=== PATIENT | female | born 1970 | race Caucasian/White ===

== ENCOUNTER 2018-08-31 19:26 | Observation (INO) ==
[2018-08-31] MEDS ORDERED: NS 1,000 ML IV ONE ×2 (19:38→23:25)
--- NOTE | 2018-08-31 20:11 | Diag Imaging Result Doc PS360 ---
EXAM: CHEST-PORTABLE - 08/31/2018 HISTORY: weak TECHNIQUE: Portable chest COMPARISON: 04/04/2018 FINDINGS: Heart size is normal. The lungs appear clear. There is no pleural effusion or pneumothorax identified. IMPRESSION: No evidence of acute disease. Electronically signed by Doug Gil 08/31/2018 8:08 PM
[2018-08-31] MEDS ORDERED: SOLU-MEDROL IV ONE (20:16)
[2018-08-31 20:28] LABS: BASO# 0.03 X1000 (0.0-0.2); BASO% 0.5 % (0.0-0.8); EOS# 0.31 X1000 (0.0-0.7); EOS% 4.8 % (0.0-10.0); HEMATOCRIT 40.7 % (37.0-47.0); HEMOGLOBIN 13.2 g/dL (12.0-16.0); IMM GRAN# 0.01 X1000 (0.0-0.04); IMM GRAN% 0.2 % (0.0-0.5); LYMPH# 1.13 X1000 (1.2-3.4); LYMPH% 17.4 % (20.5-51.1); MCH 28.2 PG (27-31); MCHC 32.4 g/dL (33-37); MONO# 0.64 X1000 (0.11-0.59); MONO% 9.8 % (1.7-9.3); MPV 10.4 FL (7.4-10.4); NEUT# 4.38 X1000 (1.4-6.5); NEUT% 67.3 % (42.2-75.2); PLT 230 X1000 (130-400); RBC 4.68 XMIL (4.2-5.4); RDW 15.6 % (11.5-14.5)
[2018-08-31 20:50] LABS: AGAP 9; ALBUMIN 3.7 g/dL (3.5-5.0); ALKALINE PHOSPHATASE 76 U/L (32-104); BUN 14 mg/dL (8-22); CALCIUM 8.8 mg/dL (8.8-10.2); CHLORIDE 106 mmol/L (98-107); COSMO 281; CREATININE 0.7 mg/dL (0.5-0.9); ESTIMATED GFR > 60; GLUCOSE 91 mg/dL (70-104); GOT 15 U/L (10-30); GPT 12 U/L (10-36); POTASSIUM 4.2 mmol/L (3.5-5.1); SODIUM 141 mmol/L (136-145); TCO2 26 mmol/L (25-35); TOTAL PROTEIN 7.3 g/dL (6.3-8.3)
[2018-08-31] MEDS ORDERED: NS 200 ML ONE (20:52)
[2018-08-31] MEDS ORDERED: CARDIZEM IV ONE (21:00)
[2018-08-31] MEDS ORDERED: NITROGLYCERIN SL ONE (21:00)
[2018-08-31 21:26] LABS: BILIRUBIN URINE NEGATIVE (NEGATIVE); BLOOD URINE 4+ (NEGATIVE); CLARITY SL. CLOUDY (CLEAR); COLOR YELLOW; GLUCOSE URINE NEGATIVE (NEGATIVE); KETONE URINE NEGATIVE (NEGATIVE); LEUKOCYTES URINE 2+ (NEGATIVE); NITRITE URINE NEGATIVE (NEGATIVE); PROTEIN URINE NEGATIVE (NEGATIVE); URINE SOURCE CATH; UROBILINOGEN URINE NORMAL
[2018-08-31 21:27] LABS: URINE BACTERIA NEGATIVE /HFP; URINE EPITHELIAL CELLS <10 /HPF (<10); URINE RBC <10 /HPF (<10)
[2018-08-31 21:28] LABS: URINE CAST NONE SEEN /LPF; URINE CRYSTAL NONE SEEN /HPF; URINE YEAST NONE SEEN /HPF
[2018-08-31] MEDS ORDERED: LEVAQUIN 750 MG/D5W 750 MG/150 ML IVPB IV ONE (22:12)
--- NOTE | 2018-08-31 23:01 | PROVIDER DOCUMENTATION ---
This chart was entered by Sydni Garcia Scribe, acting as scribe for Fabrice Seaman MD. HPI-General Adult - General Chief Complaint: Nausea/Vomiting Stated Complaint: dizzy, nausea,weakness Time Seen by Provider: 08/31/18 19:36 Source: patient Allergies/Adverse Reactions: Patient Allergies Allergy/AdvReac Type Severity Reaction Status Date / Time Penicillins Allergy RASH Verified 04/05/18 00:01 sulfamethoxazole Allergy RASH Verified 04/04/18 20:44 [From Bactrim] trimethoprim [From Bactrim] Allergy RASH Verified 04/04/18 20:44 Home Medications: Home Medication List Medication Instructions Recorded Confirmed Last Taken Type Cholecalciferol (Vitamin D3) 1 tab PO DAILY 06/25/15 08/31/18 04/03/18 History [Vitamin D3] Hydrocodone/Ibuprofen [Vicoprofen 1 tab PO BID PRN 06/25/15 08/31/18 04/03/18 History 200-7.5 mg Tab] Alprazolam [Xanax] 1 tab PO BID PRN 04/07/16 08/31/18 04/03/18 History Ondansetron HCl [Zofran] 1 tab PO Q8H PRN PRN 04/07/16 08/31/18 04/07/16 History Baclofen 20 mg PO 4XDAY 05/09/17 08/31/18 04/03/18 History Amphet Asp/Amphet/D-Amphet 1 tab PO BID 04/04/18 08/31/18 04/03/18 History [Adderall 10 mg Tablet] Citalopram [Celexa] 1 tab PO QAM 04/04/18 08/31/18 04/03/18 History Meclizine HCl [Antivert] 1 tab PO Q8HR PRN 04/04/18 08/31/18 Unknown History Tolterodine Tartrate [Detrol LA] 1 cap PO DAILY 08/31/18 08/31/18 Unknown History Venlafaxine [Effexor] 1 tab PO DAILY 08/31/18 08/31/18 Unknown History - History of Present Illness -Gen Adult Nature of Presenting Problems: pt is a 48 yr old female presenting via EMS with complaint of nausea, vomiting, weakness and incontinence. pt hx of MS, reports n/v over last 3 days, increasing weakness and now unable to transfer self, pt is non ambulatory at baseline, reports since unable to transfers self she has become incontinent. pt admits dysuria, urgency but when she attempts to urinate she is unable to. pt reports hx of UTIs, last MS flair was in April. 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 Severity: reports: moderate Onset/Duration: reports: 3 days ago Timing: reports: still present, getting worse Context/Activities at Onset: reports: rest Modifying Factors: improves with: nothing Associated Symptoms: reports: fatigue, genitourinary problems, nausea, vomiting, weakness. denies: fever/chills, shortness of breath Similar Symptoms Previously?: Yes (hx of MS, UTIs) Recently seen or treated by another doctor?: No Review of Systems - Adult - REVIEW OF SYSTEMS - ADULT Constitutional: reports: fatique. denies: fever Eyes: reports: no symptoms reported Ears, Nose, Mouth & Throat: reports: no symptoms reported Cardiovascular: denies: chest pain, palpitations, syncope Respiratory: denies: cough, shortness of breath Gastrointestinal: reports: nausea, vomiting. denies: abdominal pain, constip ation, diarrhea Genitourinary: reports: dysuria, incontinence, urgency Musculoskeletal: reports: muscle weakness (unable to transfer due to weakness) Integumentary: reports: no symptoms reported Neurological: denies: dizziness/vertigo, headache/migraines, syncope Psychiatric: reports: no symptoms reported Endocrine: reports: no symptoms reported Hematologic/Lymphatic: reports: no symptoms reported Allergic/Immunologic: reports: no symptoms reported All Other Systems: Reviewed and Negative Past History - Adult - PAST MEDICAL HISTORY-ADULT Review of Records: reports: Old Records Reviewed, Nursing Assessment Review, Medications Reviewed, Social history reviewed & non-contributory. Major Childhood Illnesses: reports: denies history Cardiovascular: reports: denies history Respiratory: reports: denies history Gastrointestinal: reports: denies history Obstetrical/Gynecological: reports: denies history Genitourinary: reports: denies history Musculoskeletal: reports: denies history Neurological: reports: Muscular Dystrophy, Multiple Sclerosis Psychiatric: reports: denies history Endocrine/Immune: reports: denies history Other Conditions: reports: denies history - IMMUNIZATION STATUS Childhood Immunizations: See Nurse Assessment Flu Vaccine: See Nurse Assessment - FAMILY HISTORY Family History: reviewed, not pertinent - SOCIAL HISTORY Smoking: non-smoker Substance Use: denies Living Situation: family Physical Exam-General - PHYSICAL EXAM-ADULT Initial Vital Signs Reviewed: Yes - CONSTITUTIONAL General Appearance: alert, no apparent distress - EYES Eyes: PERRL/EOMI - HEAD, EARS, NOSE, MOUTH & THROAT HENMT: normocephalic/atraumatic, moist mucous membranes, normal ENT inspection - NECK Neck: non-tender, full range of motion, supple, normal inspection - RESPIRATORY Respiratory: chest non-tender, lungs clear, normal breath sounds, no pleuratic chest pain, no respiratory distress, no accessory muscle use - CARDIOVASCULAR Cardiovascular: normal peripheral pulses, no edema, tachycardia - GASTROINTESTINAL (ABDOMEN) Abdominal Exam: normal bowel sounds, non tender, soft - LYMPHATIC Lymphatic: no adenopathy - MUSCULOSKELETAL Back Exam: normal inspection, no CVA tenderness, no vertebral tenderness Extremity: normal range of motion, non-tender, normal inspection - SKIN Integumentary: normal color, normal turgor, warm/dry - PSYCHIATRIC Psych/Mental Status: normal mood/affect Progress - PLAN OF CARE/RESULTS Progress/Plan/Lab Results: Vital Signs - 8 hr 08/31/18 19:26 08/31/18 19:37 Temperature 98 F Pulse Rate 115 H Respiratory Rate 20 Blood Pressure 163/119 141/97 O2 Sat by Pulse Oximetry 98 Orders Category Date Time Status Nursing- Obtain EKG ONCE Care 08/31/18 19:37 Active CHEST-PORTABLE [RAD] Stat Exams 08/31/18 19:37 Completed BLOOD CULTURE [BLDCUL] Stat Lab 08/31/18 19:37 Uncollected CBC WITH DIFF [HEME] Stat Lab 08/31/18 19:37 Uncollected CMP [COMPREHENSIVE METABOLIC PANEL] [CHEM] Stat Lab 08/31/18 19:37 Uncollected LACTATE, PLASMA [CHEM] Stat Lab 08/31/18 19:[address] W/POSS RFLX CULT [URINALYSIS] Stat Lab 08/31/18 19:37 Uncollected 0.9% Sodium Chloride Inj [Ns] 1,000 ml Med 08/31/18 19:38 Active IV 999 mls/hr EKG [EKG] Stat Ther 08/31/18 19:37 Ordered Result Diagrams: 08/31/18 20:15 08/31/18 20:15 - EKG 1 Time of EKG reading by physician:: 20:08 EKG Read and Signed by:: Fabrice Seaman EKG Interpretation (*Must complete 3 of following elements*): Abnormal (poss LAE, septal infarct-age undetermined) Rate: 104 Rhythm: sinus tachycardia [place]: normal QRS: normal [place] Interval: normal ST Wave: normal - XRAY 1 XRAY Study: Chest Impression: Normal ( Signed EXAM: CHEST-PORTABLE - 08/31/2018 HISTORY: weak TECHNIQUE: Portable chest COMPARISON: 04/04/2018 FINDINGS: Heart size is normal. The lungs appear clear. There is no pleural effusion or pneumothorax identified. IMPRESSION: No evidence of acute disease. Electronically signed by Doug Gil 08/31/2018 8:08 PM 08/31/182007 Interpreting Physician: Doug Gil MD Dictated Date/Time: 08/31/182006 cc: Fabrice Seaman MD; UNKNOWN) Comparison with other Films: no changes (04/04/18) - CONSULTS/PCP/HOSPITALIST Notification #1 *Consult/PCP/Hospitalist*: Shon Time Discussed: 22:59 Consult Disposition: Admit Departure - Departure Date of Disposition Decision: 08/31/18 Time of Disposition Decision: 22:59 DIAGNOSIS: UTI (urinary tract infection), Multiple sclerosis exacerbation Disposition: ADMITTED INPATIENT 09 Certified Medical Emergency: Emergent Condition: Good Referrals and Follow-Ups: UNKNOWN, [Primary Care Provider] - - Critical Care Note This patient required my direct & personal management of CC.: No Attestation - Physician/ JOSÉ LUIS Attestation Patient care was provided by Advanced Practice Provider:: No The physician spent face to face time with patient:: Yes Advanced Practice Provider documentation review:: Supervising physician onsite and consulted in the evaluation and care of this patient. The physician did have a face to face encounter with the patient. This chart was documented by the indicated scribe, (Sydni Garcia Scribe) and accurately reflects the services I performed and decisions made by me, Fabrice Seaman MD, as attested by the provider's signature.
[2018-08-31] MEDS ORDERED: ZOFRAN IV PRN (23:25)
--- NOTE | 2018-09-01 04:25 | EKG Report ---
Test Performed on : 08/31/2018 8:04:11 PM Test Reason : CP Blood Pressure : / mmHG Vent. Rate : 104 BPM Atrial Rate : 104 BPM P-R Int : 136 ms QRS Dur : 072 ms QT Int : 340 ms P-R-T Axes : 072 009 056 degrees QTc Int : 447 ms Sinus tachycardia. Possible Left atrial enlargement Septal infarct , age undetermined Abnormal ECG When compared with ECG of 04-APR-2018 19:50, Vent. rate has increased BY 35 BPM Unconfirmed Result
[2018-09-01 08:25] LABS: BASO# 0.01 X1000 (0.0-0.2); BASO% 0.1 % (0.0-0.8); HEMATOCRIT 40.3 % (37.0-47.0); IMM GRAN# 0.03 X1000 (0.0-0.04); IMM GRAN% 0.4 % (0.0-0.5); LYMPH# 0.78 X1000 (1.2-3.4); LYMPH% 10.9 % (20.5-51.1); MCHC 32.3 g/dL (33-37); MCV 86.9 FL (81-99); MONO# 0.04 X1000 (0.11-0.59); MONO% 0.6 % (1.7-9.3); MPV 10.5 FL (7.4-10.4); NEUT# 6.29 X1000 (1.4-6.5); PLT 229 X1000 (130-400); RBC 4.64 XMIL (4.2-5.4); RDW 15.2 % (11.5-14.5); WBC 7.15 X1000 (4.8-10.8)
[2018-09-01 09:01] LABS: AGAP 12; BUN 16 mg/dL (8-22); CALCIUM 8.8 mg/dL (8.8-10.2); CHLORIDE 106 mmol/L (98-107); COSMO 286; CREATININE 0.6 mg/dL (0.5-0.9); ESTIMATED GFR > 60; GLUCOSE 170 mg/dL (70-104); POTASSIUM 4.4 mmol/L (3.5-5.1); SODIUM 141 mmol/L (136-145); TCO2 23 mmol/L (25-35)
[2018-09-01] MEDS ORDERED: XANAX PO PRN (09:11)
[2018-09-01] MEDS ORDERED: VICOPROFEN 200/7.5 MG PO PRN (09:11)
[2018-09-01] MEDS ORDERED: ANTIVERT PO PRN (09:11)
[2018-09-01] MEDS ORDERED: ZOFRAN ODT PO PRN (09:11)
[2018-09-01] MEDS ORDERED: DETROL LA PO SCH (09:15)
[2018-09-01] MEDS ORDERED: EFFEXOR PO SCH (09:15)
[2018-09-01] MEDS ORDERED: CELEXA PO SCH (09:15)
[2018-09-01 09:58] LABS: LYMPHS 14 % (21-51); SEGS 86 % (42-75)
--- NOTE | 2018-09-01 10:00 | HISTORY AND PHYSICAL ---
PRIMARY CARE PHYSICIAN: ERIC Thao NEUROLOGIST: Dr. Loc Gilliam MD CHIEF COMPLAINT: Nausea and vomiting x3 and increased weakness with some dysuria and urgency, and urinary incontinence. HISTORY OF PRESENTING ILLNESS: This is a 48-year-old female with a history of MS, who presents to [facility] ER with complaints of nausea, vomiting, and weakness over the last 3 days along with some dysuria, urgency and incontinence. She notes her last MS exacerbation was in April of 2018. Her workup was really fairly unremarkable. She did have a bump in her blood pressure at 163/119 on arrival, but currently it is 149/87. Her laboratory data showed a white blood cell count of 6.50. All of her electrolytes were within normal limits. Her urinalysis showed negative nitrites, 2+ white blood cells, but no bacteria, and no yeast so she was admitted for further evaluation and treatment. PAST MEDICAL HISTORY: MS, ADHD, and depression. PAST SURGICAL HISTORY: . FAMILY HISTORY: Reviewed and noncontributory. SOCIAL HISTORY: She currently lives with family. Denies any tobacco, alcohol or illicit drug use. ALLERGIES: To penicillin and sulfa drugs. HOME MEDICATIONS: She takes Xanax 1 0.25 mg p.o. b.i.d. p.r.n., baclofen 20 mg p.o. 4 times daily, Celexa 40 mg p.o. every morning. Adderall 10 mg p.o. b.i.d. will be held. Matthews 7.5 one p.o. t.i.d. p.r.n., Antivert 25 mg p.o. q.8 hours p.r.n., Zofran 8 mg p.o. q.8 hours p.r.n., Detrol LA 4 mg 1 p.o. daily, and Effexor 75 mg p.o. daily. LABORATORY DATA: White blood cell count of 6.50, hemoglobin 13.2, hematocrit 40.7, and platelets 230,000. Sodium 141, potassium 4.2, chloride 106, CO2 26, BUN of 14, creatinine 0.7, glucose 91, and plasma lactate 1. Urinalysis was negative except for 2+ white blood cells. Chest x-ray showed no evidence of acute disease. EKG showed sinus tachycardia at 104. REVIEW OF SYSTEMS: She denied any fever, chills, blurred vision, or dizziness. She has had increased weakness. Denied any chest pain, coughing, or shortness of breath. She was positive for some nausea, vomiting, dysuria, urgency and some stress incontinence. Denied any abdominal pain, constipation, or diarrhea. PHYSICAL EXAMINATION: VITAL SIGNS: On arrival, she had a temperature of 98 degrees, pulse 115, respirations 20, blood pressure was 163/119, and saturating 98% on room air. Currently, blood pressure is 149/87. GENERAL: This is a 48-year-old female who is lying in the bed and answers questions appropriately. States she has not been able to walk for the past 2 years, but is able to transfer herself from bed to wheelchair. HEENT: Normocephalic, atraumatic. Normal ENT inspection. Oropharynx and nares are clear. Pupils are equal, round, reactive to light and accommodation. Extraocular movements are intact. NECK: Normal on inspection. Normal range of motion. LUNGS: Clear to auscultation bilaterally with equal lung expansion and chest wall movement. HEART: Regular rate and rhythm. No murmurs, rubs, or gallops. ABDOMEN: Soft, nontender, and nondistended. Bowel sounds are present x4 quadrants. MUSCULOSKELETAL: She has 3/5 strength x4 extremities. NEUROLOGICAL: The cranial nerves 2-12 appear grossly intact otherwise. ASSESSMENT: 1. Generalized weakness secondary to MS. 2. Nausea and vomiting. 3. Dysuria with some stress incontinence. PLAN: She was admitted to the medical unit. She was placed on a regular diet and had tolerated her diet well this morning with no further complaints of nausea or vomiting. Her urine culture is pending. We were considering doing an MRI of her brain, but she states that she has to be completely sedated in an outpatient setting in order to do an MRI, and her last one was approximately 6 months ago. She did receive 1000 mg of Solu-Medrol IV x1 in the emergency room. She has normal saline at 125 mL an hour that is completed. She received Levaquin 750 mg IV x1 in the emergency room, but according to the urinalysis we have, it is negative. Again, her urine culture is pending. She can possibly be discharged after being seen by attending later this afternoon so further orders after being seen by attending. Dictated by ERIC Vazquez for Brandon Limon MD Addendum: Patient seen and examined by myself. Agree with ERIC note. It reflects my assessment and plan. Patient is being admitted to hospital for possible MS exacerbation. Patient also reported history of recurrent UTI so will start antibiotics now. Will monitor patient closely. cc: ERIC Vazquez MD Kevin D. Campbell, CRNP Christopher C. Laganke, MD [facility]ITALMarsha
[2018-09-01] MEDS ORDERED: LIORESAL PO SCH (13:00)
[2018-09-01 13:31] VITALS: BP 129/79
== END 2018-09-01 16:10 | disposition home or self-care (01) ==
LOC: P.ED 19:26 → INTOOBSV 23:17 → P.MEDSURG 23:17
PROVIDERS: ATTEND Internal Medicine
CPT/HCPCS: 51702; 71010; 71045; 80048; 80053; 81001; 83605; 85025; 87040; 87077; 87088; 87186; 93005; 96365; 96367; 96375; 99285; A9270; G0378; J1956; J2930; J7030

== ENCOUNTER 2019-03-07 16:08 | Inpatient (IN) ==
--- NOTE | 2019-03-07 16:33 | Diag Imaging Result Doc PS360 ---
EXAM: CHEST-1 VIEW 03/07/2019 HISTORY: cough TECHNIQUE: Erect AP portable at 1641 COMMENT: There is ill-defined opacity present in the right lower lobe which was not the case on 08/31/2018. There is a hiatal hernia. IMPRESSION: Bronchopneumonia right lower lobe. Electronically signed by Bret Velazquez 03/07/2019 4:31 PM
[2019-03-07] MEDS ORDERED: LEVAQUIN 500 MG/D5W 500 MG/100 ML IVPB IV ONE (16:38)
[2019-03-07 16:51] LABS: BASO# 0.02 X1000 (0.0-0.2); BASO% 0.3 % (0.0-0.8); EOS# 0.36 X1000 (0.0-0.7); EOS% 5.9 % (0.0-10.0); HEMATOCRIT 39.6 % (37.0-47.0); HEMOGLOBIN 12.3 g/dL (12.0-16.0); IMM GRAN# 0.01 X1000 (0.0-0.04); IMM GRAN% 0.2 % (0.0-0.5); LYMPH# 0.56 X1000 (1.2-3.4); LYMPH% 9.2 % (20.5-51.1); MCH 27.3 PG (27-31); MCHC 31.1 g/dL (33-37); MONO% 11.5 % (1.7-9.3); MPV 10.9 FL (7.4-10.4); NEUT# 4.46 X1000 (1.4-6.5); NEUT% 72.9 % (42.2-75.2); PLT 169 X1000 (130-400); RDW 13.8 % (11.5-14.5); WBC 6.11 X1000 (4.8-10.8)
[2019-03-07 17:16] LABS: AGAP 9; ALBUMIN 3.6 g/dL (3.5-5.0); ALKALINE PHOSPHATASE 82 U/L (32-104); BUN 13 mg/dL (8-22); CALCIUM 9.2 mg/dL (8.8-10.2); CHLORIDE 105 mmol/L (98-107); COSMO 277; CREATININE 0.6 mg/dL (0.5-0.9); ESTIMATED GFR > 60; GLUCOSE 89 mg/dL (70-104); GOT 15 U/L (10-30); GPT 13 U/L (10-36); POTASSIUM 4.1 mmol/L (3.5-5.1); SODIUM 139 mmol/L (136-145); TCO2 25 mmol/L (25-35); TOTAL PROTEIN 6.9 g/dL (6.3-8.3)
--- NOTE | 2019-03-07 17:20 | PROVIDER DOCUMENTATION ---
This chart was entered by Pauline Kim Scribe, acting as scribe for Demarco Shrestha MD. HPI-General Adult - General Chief Complaint: Weakness Stated Complaint: WEAKNESS/ COUGH Time Seen by Provider: 03/07/19 16:15 Source: patient, family () Allergies/Adverse Reactions: Patient Allergies Allergy/AdvReac Type Severity Reaction Status Date / Time Penicillins Allergy RASH Verified 04/05/18 00:01 sulfamethoxazole Allergy RASH Verified 04/04/18 20:44 [From Bactrim] trimethoprim [From Bactrim] Allergy RASH Verified 04/04/18 20:44 Home Medications: Home Medication List Medication Instructions Recorded Confirmed Last Taken Type Alprazolam [Xanax] 1 tab PO BID PRN 04/07/16 08/31/18 04/03/18 History Ondansetron HCl [Zofran] 1 tab PO Q8H PRN PRN 04/07/16 08/31/18 04/07/16 History Baclofen 20 mg PO 4XDAY 05/09/17 09/01/18 04/03/18 History Citalopram [Celexa] 1 tab PO QAM 04/04/18 09/01/18 04/03/18 History Meclizine HCl [Antivert] 1 tab PO Q8HR PRN 04/04/18 08/31/18 Unknown History Tolterodine Tartrate [Detrol LA] 1 cap PO DAILY 08/31/18 08/31/18 Unknown History Venlafaxine [Effexor] 1 tab PO DAILY 08/31/18 08/31/18 Unknown History CefDINIR [Omnicef] 300 mg PO BID #20 cap 09/01/18 Unknown Rx Dextroamphetamine/Amphetamine 10 mg PO BID 09/01/18 09/01/18 Unknown History [Adderall 10 mg Tablet] Hydrocodone/Ibuprofen 1 ea PO TID PRN 09/01/18 09/01/18 Unknown History [Hydrocodone-Ibuprofen 7.5-200] Methylprednisolone [Medrol Dosepak] 4 mg PO DIRECTED #1 pkg 09/01/18 Unknown Rx - History of Present Illness -Gen Adult Nature of Presenting Problems: 48 yowf presents to the ed with c/o worsening weakness, cough, sob sinus congestion and an out break of shingles on abd. pt sts the weakness in her BUE and BLE has worsened since onset. pt is a/o x4 on exam and speaking in complete sentences without issue. Location of Pain/Injury: reports: upper extremity, lower extremity Quality of Pain: reports: other (weakness not pain) Severity: reports: moderate Onset/Duration: reports: gradual Timing: reports: still present, constant, getting worse Context/Activities at Onset: reports: light activity Modifying Factors: worse with: nothing Associated Symptoms: reports: cough, fatigue, malaise, sinus congestion/drainage , rash, shortness of breath, weakness, trouble walking. denies: back/neck pain, chest pain, diarrhea, fever/chills, nausea, vomiting Similar Symptoms Previously?: Yes Recently seen or treated by another doctor?: No Review of Systems - Adult - REVIEW OF SYSTEMS - ADULT Constitutional: reports: see HPI, fatique. denies: chills, fever Eyes: reports: no symptoms reported Ears, Nose, Mouth & Throat: reports: no symptoms reported Cardiovascular: denies: chest pain, palpitations, syncope Respiratory: reports: see HPI, cough. denies: shortness of breath, wheezing Gastrointestinal: denies: abdominal pain, diarrhea, nausea, vomiting Genitourinary: reports: no symptoms reported Musculoskeletal: reports: see HPI, muscle weakness (BUE and BLE). denies: back pain, neck pain Integumentary: reports: no symptoms reported Neurological: denies: dizziness/vertigo, headache/migraines, seizure, slurred speech Psychiatric: reports: no symptoms reported Endocrine: reports: no symptoms reported Hematologic/Lymphatic: reports: no symptoms reported Allergic/Immunologic: reports: no symptoms reported All Other Systems: Reviewed and Negative Past History - Adult - PAST MEDICAL HISTORY-ADULT Review of Records: reports: Old Records Reviewed, Nursing Assessment Review, Medications Reviewed, Social history reviewed & non-contributory. Major Childhood Illnesses: reports: denies history Cardiovascular: reports: denies history Respiratory: reports: pneumonia Gastrointestinal: reports: denies history Obstetrical/Gynecological: reports: denies history Genitourinary: reports: chronic UTI's Musculoskeletal: reports: denies history Hand Dominance: Right Handed Neurological: reports: Muscular Dystrophy, Multiple Sclerosis Psychiatric: reports: denies history Endocrine/Immune: reports: denies history Other Conditions: reports: denies history - PRIOR SURGERIES/PROCEDURES Surgical/Procedure History: reports: - IMMUNIZATION STATUS Childhood Immunizations: See Nurse Assessment Flu Vaccine: See Nurse Assessment - FAMILY HISTORY Family History: reviewed, not pertinent - SOCIAL HISTORY Smoking: denies Substance Use: denies Living Situation: family Physical Exam-General - PHYSICAL EXAM-ADULT Initial Vital Signs Reviewed: Yes - CONSTITUTIONAL General Appearance: alert, no apparent distress, obese - EYES Eyes: PERRL/EOMI, pink conjunctivae - HEAD, EARS, NOSE, MOUTH & THROAT HENMT: moist mucous membranes, normal ENT inspection - NECK Neck: non-tender, full range of motion, supple, normal inspection - RESPIRATORY Respiratory: chest non-tender, lungs clear, normal breath sounds, no pleuratic chest pain, no respiratory distress, no accessory muscle use, other (PNA seen on the right in xray, lungs sound clear) - CARDIOVASCULAR Cardiovascular: normal peripheral pulses, tachycardia (109) - CHEST (BREASTS) Chest/Breast: deferred - GASTROINTESTINAL (ABDOMEN) Abdominal Exam: normal bowel sounds, soft, tenderness (around shingles), other (pt has shingles on abdomen and is being treated) - GENITOURINARY Female Genitalia/Pelvic Exam: deferred Rectal Exam: deferred Hemoccult Exam: deferred - MUSCULOSKELETAL Back Exam: normal inspection, no CVA tenderness, no vertebral tenderness Extremity: normal inspection, normal capillary refill, pelvis stable, other (w eakness BLE and unable to ambulate. pt does have MS and ambulation is minimal on baseline) - SKIN Integumentary: normal color, normal turgor, warm/dry - NEUROLOGIC Neurologic: motor weakness. negative: aphasia, EOM palsy, facial droop, sensory deficit - PSYCHIATRIC Psych/Mental Status: normal mood/affect, normal thought content, normal thought process, oriented x 3 Progress - PLAN OF CARE/RESULTS Progress/Plan/Lab Results: Vital Signs - 8 hr 03/07/19 16:11 Temperature 98.0 F Pulse Rate 109 H Respiratory Rate 18 Blood Pressure 132/101 O2 Sat by Pulse Oximetry 94 L Orders Category Date Time Status CHEST-1 VIEW [RAD] Stat Exams 03/07/19 16:06 Completed BLOOD CULTURE [BLDCUL] Stat Lab 03/07/19 16:37 Ordered CBC WITH ELECTRONIC DIFF [HEME] Stat Lab 03/07/19 16:20 Results COMPREHENSIVE METABOLIC PANEL [CHEM] Stat Lab 03/07/19 16:20 Received PRO B-NATRIURETIC PEPTIDE Stat Lab 03/07/19 16:20 Received TROPONIN T Stat Lab 03/07/19 16:06 Ordered Levofloxacin 500 mg/D5w [Levaquin 500 mg/D5w] Med 03/07/19 16:38 Active 500 mg in 100 ml IV NOW EKG [EKG] Stat Ther 03/07/19 16:06 Ordered Result Diagrams: 03/07/19 16:20 03/07/19 16:20 - REASSESSMENT Reassessment #1 Time Reassessed: 17:01 Status: unchanged - EKG 1 Time of EKG reading by physician:: 16:40 EKG Read and Signed by:: Demarco Shrestha EKG Interpretation (*Must complete 3 of following elements*): Abnormal Rate: 98 Rhythm: nsr [place]: normal QRS: other (possible left atrial enlargement) [place] Interval: normal ST Wave: normal Comments: cannot rule out anterior infarct, age undetermined - XRAY 1 XRAY: Bilateral XRAY Study: Chest Impression: See EMR Report (EXAM: CHEST-1 VIEW 03/07/2019 HISTORY: cough TECHNIQUE: Erect AP portable at 1641 COMMENT: There is ill-defined opacity present in the right lower lobe which was not the case on 08/31/2018. There is a hiatal hernia. IMPRESSION: Bronchopneumonia right lower lobe. Lisa ctronically signed by Bret Velazquez 03/07/2019 4:31 PM 03/07/19 1631 Interpreting Physician: Bret Velazquez MD Dictated Date/Time: 03/07/19 1630 cc: Demarco Shrestha MD;) - CONSULTS/PCP/HOSPITALIST Notification #1 *Consult/PCP/Hospitalist*: hospitalist dr miguel Time Discussed: 17:12 Consult Disposition: Will see in ED, Admit Departure - Departure Date of Disposition Decision: 03/07/19 Time of Disposition Decision: 17:19 DIAGNOSIS: Multiple sclerosis exacerbation, Bronchopneumonia, Shingles Disposition: ADMITTED INPATIENT 09 Certified Medical Emergency: Emergent Condition: Fair Referrals and Follow-Ups: None,PCP [Primary Care Provider] - - Critical Care Note This patient required my direct & personal management of CC.: No Attestation - Physician/ JOSÉ LUIS Attestation Patient care was provided by Advanced Practice Provider:: No The physician spent face to face time with patient:: Yes Advanced Practice Provider documentation review:: Supervising physician onsite and consulted in the evaluation and care of this patient. The physician did have a face to face encounter with the patient. This chart was documented by the indicated scribe, (Pauline Kim Scribe) and accurately reflects the services I performed and decisions made by me, Demarco Shrestha MD, as attested by the provider's signature.
[2019-03-07] MEDS ORDERED: ANTIVERT PO PRN (18:17)
[2019-03-07] MEDS ORDERED: ZOFRAN ODT PO PRN (18:17)
[2019-03-07] MEDS ORDERED: D50W SYRINGE IV ONE (18:45)
[2019-03-07] MEDS ORDERED: LEVAQUIN 250 MG/D5W 250 MG/50 ML IVPB IV ONE (20:00)
[2019-03-07] MEDS: DOXYCYCLINE 100 MG in NS 250 ML IV SCH (21:34)
[2019-03-07] MEDS: LIORESAL PO SCH (21:34)
[2019-03-07] MEDS: ZOVIRAX PO SCH (21:39)
--- NOTE | 2019-03-07 22:24 | HISTORY AND PHYSICAL ---
CHIEF COMPLAINT: Generalized weakness and cough. HISTORY OF PRESENT ILLNESS: Patient is a 48-year-old female who presented to the emergency department with increased cough and congestion, increased worsening shortness of breath, has sinus congestion. States she has also recently had a breakout of shingles on her abdomen that hurts and is very painful. Notes that she has bilateral upper and lower extremity weakness, but she feels as though it is due to her MS, but it has been worsening due to her current illness. Denies any fevers. Denies any focalized weakness. ALLERGIES: Penicillin and Bactrim, both causing a rash. MEDICATIONS: Xanax, Zofran, Baclofen, Celexa. REVIEW OF SYSTEMS: As noted above. Positive cough, congestion, shortness of breath, increased work of breathing. Denies any chest pain, palpitations. Denies any fevers, chills, headaches, blurred vision, change in vision. Denies any focalized weakness, although does have generalized weakness in her lower extremities. Denies any dysuria, frequency, urgency, hesitancy. Denies any constipation, melena, hematochezia. Does have shingles rash that she was recently diagnosed with on her right side of her abdomen. PAST MEDICAL HISTORY: Pneumonia, chronic UTIs, multiple sclerosis. SURGICAL HISTORY: section. FAMILY HISTORY: Noncontributory. SOCIAL HISTORY: Patient is . She does not smoke or drink. PHYSICAL EXAMINATION: VITAL SIGNS: Reviewed. Temperature 98 degrees, pulse 109, respiratory rate 18, BP 132/101, saturating 94% on room air. GENERAL: Patient is awake, currently in no respiratory distress. HEENT: Normocephalic. NECK: Supple. CARDIOVASCULAR: Regular rate. CHEST: Clear, although decreased breath sounds bilaterally. ABDOMEN: Soft, nondistended. EXTREMITIES: Moves all extremities. NEUROLOGIC: No changes. ASSESSMENT: 1. Pneumonia. 2. Shingles. 3. Multiple sclerosis with mild exacerbation. 4. Tachycardia. 5. Hypertension. 6. Hypoxemia. PLAN: We will admit patient to the hospital with antibiotics, fluids, oxygen. We will restart her home medications and will follow. cc: Roland Sanchez MD
[2019-03-08] MEDS: ADDERALL PO SCH ×2 (06:30→14:51)
[2019-03-08 07:12] LABS: HEMATOCRIT 38.5 % (37.0-47.0); MCH 27.6 PG (27-31); MCHC 31.2 g/dL (33-37); MCV 88.5 FL (81-99); MPV 10.9 FL (7.4-10.4); RBC 4.35 XMIL (4.2-5.4); RDW 13.7 % (11.5-14.5); WBC 4.08 X1000 (4.8-10.8)
--- NOTE | 2019-03-08 07:17 | EKG Report ---
Test Performed on : 03/07/2019 4:40:05 PM Test Reason : ER Blood Pressure : / mmHG Vent. Rate : 098 BPM Atrial Rate : 098 BPM P-R Int : 148 ms QRS Dur : 076 ms QT Int : 358 ms P-R-T Axes : 066 001 045 degrees QTc Int : 457 ms Normal sinus rhythm. Possible Left atrial enlargement Cannot rule out Anterior infarct (cited on or before 31-AUG-2018) Abnormal ECG When compared with ECG of 31-AUG-2018 20:04, No significant change was found Unconfirmed Result
[2019-03-08 07:34] LABS: AGAP 9; ALBUMIN 3.4 g/dL (3.5-5.0); ALKALINE PHOSPHATASE 78 U/L (32-104); BUN 14 mg/dL (8-22); CALCIUM 9.1 mg/dL (8.8-10.2); CHLORIDE 106 mmol/L (98-107); COSMO 278; CREATININE 0.5 mg/dL (0.5-0.9); ESTIMATED GFR > 60; GLUCOSE 93 mg/dL (70-104); GOT 15 U/L (10-30); GPT 13 U/L (10-36); POTASSIUM 3.8 mmol/L (3.5-5.1); SODIUM 139 mmol/L (136-145); TCO2 24 mmol/L (25-35); TOTAL PROTEIN 6.6 g/dL (6.3-8.3)
[2019-03-08] MEDS ORDERED: DUONEB (A & A) INH PRN (08:14)
[2019-03-08] MEDS: DOXYCYCLINE 100 MG in NS 250 ML IV SCH ×2 (08:46→21:51)
[2019-03-08] MEDS: SOLU-MEDROL IV SCH ×3 (08:46→23:46)
[2019-03-08] MEDS: EFFEXOR XR PO SCH (08:48)
[2019-03-08] MEDS: ENABLEX PO SCH (08:48)
[2019-03-08] MEDS: LIORESAL PO SCH ×4 (08:48→21:53)
[2019-03-08] MEDS: LYRICA PO SCH (08:49)
[2019-03-08] MEDS: ZOVIRAX PO SCH ×5 (08:49→23:45)
[2019-03-08] MEDS: VICOPROFEN 200/7.5 MG PO PRN ×2 (10:56→21:53)
[2019-03-08] MEDS: LIDODERM TOP SCH (11:18)
[2019-03-08] MEDS: DUONEB (A & A) INH SCH ×4 (11:50→23:56)
[2019-03-08] MEDS ORDERED: LEVAQUIN 750 MG/D5W 750 MG/150 ML IVPB IV SCH (17:00)
--- NOTE | 2019-03-08 18:21 | PROGRESS NOTE ---
DATE: 03/08/2019 SUBJECTIVE: The patient notes that she is feeling a lot better. Still generally weak, fatigued, still having some coughing, congestion. Denies any fevers or chills. PHYSICAL EXAMINATION: Vital Signs: Temperature 98.1, pulse 70, respiratory rate 18, blood pressure 106/81. General: Patient is awake, alert, currently in no respiratory distress. HEENT: Normocephalic. Neck: Supple. Cardiovascular: Regular rate. Chest: Clear. Abdomen: Soft, nondistended. Extremities: Moves all extremities. ASSESSMENT: 1. Right lower lobe pneumonia. 2. Shingles. 3. Multiple sclerosis with mild exacerbation. 4. Tachycardia. 5. Hypertension. 6. Hypoxemia. PLAN: We will continue antibiotics, oxygen, breathing treatments. We will add steroids for her shingles. We will follow her pneumonia. If her symptoms improve, hopefully she can discharge home tomorrow. cc: Roland Sanchez MD
[2019-03-08] MEDS: XANAX PO PRN (21:53)
[2019-03-09] MEDS: DUONEB (A & A) INH SCH ×6 (03:35→23:46)
[2019-03-09] MEDS: ADDERALL PO SCH ×2 (06:31→14:57)
[2019-03-09] MEDS: ENABLEX PO SCH (08:03)
[2019-03-09] MEDS: LIORESAL PO SCH ×4 (08:04→20:27)
[2019-03-09] MEDS: ZOVIRAX PO SCH ×5 (08:04→23:23)
[2019-03-09] MEDS: LIDODERM TOP SCH (08:05)
[2019-03-09] MEDS: SOLU-MEDROL IV SCH ×3 (08:05→20:30)
[2019-03-09] MEDS: LYRICA PO SCH (08:05)
[2019-03-09] MEDS: LEVAQUIN PO SCH (08:05)
[2019-03-09] MEDS: EFFEXOR XR PO SCH (08:05)
[2019-03-09] MEDS: DOXYCYCLINE PO SCH ×2 (08:05→20:27)
[2019-03-09] MEDS: VICOPROFEN 200/7.5 MG PO PRN ×2 (08:25→23:18)
[2019-03-09] MEDS ORDERED: FLU VACCINE IM ONE (09:00)
--- NOTE | 2019-03-09 12:52 | PROGRESS NOTE ---
DATE: 03/09/2019 SUBJECTIVE: The patient states she is starting to feel better, is having less cough and congestion, less shortness of breath. Still having lots of pain in her back and rib area in the area of distribution of her shingles. PHYSICAL EXAMINATION: Vital Signs: Temperature 98, pulse 103, respiratory rate 18, BP 132/68. General: The patient is awake. She is pleasant, in mild respiratory distress. She is still sitting in the bed. She has not really been out of bed since admission. HEENT: Normocephalic. Neck: Supple. Cardiovascular: Regular rate. Chest: Clear. No crackles. Decreased but equal breath sounds. No apparent wheezing. Abdomen: Soft, nondistended. Extremities: Moves all extremities. Skin: She is noted to have erythematous vesicular-based rash on her right flank area. ASSESSMENT: 1. Right lower lobe pneumonia. 2. Shingles. 3. Multiple sclerosis with mild exacerbation. 4. Tachycardia. 5. Hypertension. 6. Hypoxic respiratory failure. PLAN: Will continue the patient in the hospital. We are going to change p.o. doxycycline. We are going to decrease her Solu-Medrol, as this hopefully will help with her MS as well as her shingles. Will continue to follow. Hopefully if she improves and is able to ambulate, we can wean her off oxygen and she can discharge over the next day. cc: Roland Sanchez MD
[2019-03-09] MEDS: XANAX PO PRN (20:27)
[2019-03-10] MEDS: DUONEB (A & A) INH SCH ×6 (03:53→23:56)
[2019-03-10] MEDS: ADDERALL PO SCH ×2 (06:41→14:27)
[2019-03-10] MEDS: ZOVIRAX PO SCH ×5 (08:05→21:17)
[2019-03-10] MEDS: DOXYCYCLINE PO SCH ×2 (08:06→21:18)
[2019-03-10] MEDS: LYRICA PO SCH (08:06)
[2019-03-10] MEDS: LIORESAL PO SCH ×4 (08:06→21:17)
[2019-03-10] MEDS: LEVAQUIN PO SCH (08:06)
[2019-03-10] MEDS: SOLU-MEDROL IV SCH (08:06)
[2019-03-10] MEDS: ENABLEX PO SCH (08:06)
[2019-03-10] MEDS: LIDODERM TOP SCH (08:07)
[2019-03-10] MEDS: EFFEXOR XR PO SCH (08:07)
--- NOTE | 2019-03-10 11:55 | PROGRESS NOTE ---
DATE: 03/10/2019 SUBJECTIVE: The patient notes that from a respiratory standpoint, she feels much better. Her cough is improved. She denies any shortness of breath or chest pain. However, she is still quite weak and unable to get out of bed or certainly to ambulate on her own. OBJECTIVE: Vitals: Temperature 99, pulse 68, respiratory rate 18, BP 142/58. General: The patient is awake, currently in no respiratory distress. Pleasant to talk with. HEENT: Normocephalic. Neck: Supple. Cardiovascular: Regular rate. Chest: Clear. Abdomen: Soft. Nondistended. Extremities: Moves all extremities. ASSESSMENT: 1. Right lower lobe pneumonia. 2. Shingles. 3. Multiple sclerosis. 4. Generalized adult failure to thrive, with generalized weakness. 5. Hypoxemia, resolved. 6. Hypertension. PLAN: We will continue the patient in the hospital, continue physical therapy, continue antibiotics and breathing treatments. We will wean her Solu-Medrol. Expect that she will need rehab on discharge. cc: Roland Sanchez MD
[2019-03-10] MEDS: VICOPROFEN 200/7.5 MG PO PRN ×2 (14:27→21:17)
[2019-03-10] MEDS: XANAX PO PRN (21:17)
[2019-03-11] MEDS: DUONEB (A & A) INH SCH ×6 (05:07→23:16)
[2019-03-11] MEDS: ADDERALL PO SCH ×2 (06:52→15:10)
[2019-03-11] MEDS ORDERED: SOLU-MEDROL IV SCH (08:00)
[2019-03-11] MEDS: LIDODERM TOP SCH (08:05)
[2019-03-11] MEDS: ENABLEX PO SCH (08:05)
[2019-03-11] MEDS: LIORESAL PO SCH ×4 (08:06→21:54)
[2019-03-11] MEDS: EFFEXOR XR PO SCH (08:06)
[2019-03-11] MEDS: LEVAQUIN PO SCH (08:06)
[2019-03-11] MEDS: LYRICA PO SCH (08:06)
[2019-03-11] MEDS: DOXYCYCLINE PO SCH ×2 (08:06→21:53)
[2019-03-11] MEDS: ZOVIRAX PO SCH ×5 (09:34→21:53)
[2019-03-11] MEDS: VICOPROFEN 200/7.5 MG PO PRN ×2 (12:31→22:06)
--- NOTE | 2019-03-11 16:22 | PROGRESS NOTE ---
DATE: 03/11/2019 SUBJECTIVE: The patient has no new complaints. States she is still tired and fatigued, difficulty getting out of bed on her own. PHYSICAL EXAMINATION: Vital Signs: Reviewed. Temp 97 degrees, pulse 82 to 118, currently in the mid 80s, blood pressure 127/77. General: Patient is awake, currently in no respiratory distress, pleasant. HEENT: Normocephalic. Neck: Supple. Cardiovascular: Regular rate and rhythm, although she has had some supraventricular tachycardia overnight. Chest: Clear and unlabored. Abdomen: Soft, nondistended. Extremities: Moves all extremities. ASSESSMENT: 1. Shingles. 2. Right lower lobe pneumonia. 3. Multiple sclerosis with mild exacerbation. 4. Tachycardia. 5. Hypertension. 6. Hypoxemia. PLAN: We are going to continue antibiotics. We will stop her Solu-Medrol today. We will continue acyclovir for her shingles and will follow. Hopefully, she can improve and be transferred to rehab tomorrow if bed is available. cc: Roland Sanchez MD
[2019-03-11 21:30] VITALS: BP 184/85
[2019-03-11] MEDS: XANAX PO PRN (22:06)
[2019-03-12] MEDS: DUONEB (A & A) INH SCH ×4 (03:28→16:34)
[2019-03-12] MEDS: ADDERALL PO SCH (06:35)
[2019-03-12] MEDS: EFFEXOR XR PO SCH (08:33)
[2019-03-12] MEDS: LEVAQUIN PO SCH (08:33)
[2019-03-12] MEDS: LYRICA PO SCH (08:33)
[2019-03-12] MEDS: ENABLEX PO SCH (08:33)
[2019-03-12] MEDS: DOXYCYCLINE PO SCH (08:33)
[2019-03-12] MEDS: LIDODERM TOP SCH (08:33)
[2019-03-12] MEDS: LIORESAL PO SCH ×2 (08:33→12:58)
[2019-03-12] MEDS: ZOVIRAX PO SCH ×2 (09:00→12:59)
--- NOTE | 2019-03-12 11:32 | DISCHARGE SUMMARY ---
ADMISSION DATE: 03/07/2019 DISCHARGE DATE: 03/12/2019 PRIMARY CARE PHYSICIAN: Listed as none. ADMISSION DIAGNOSES: 1. Pneumonia. 2. Shingles. 3. Multiple sclerosis with mild exacerbation. 4. Tachycardia. 5. Hypertension. 6. Hypoxemia. DISCHARGE DIAGNOSES: 1. Right lower lobe pneumonia. 2. Shingles. 3. Multiple sclerosis with mild exacerbation. 4. Tachycardia, resolved. 5. Hypertension. 6. Hypoxemia resolved. SUMMARY OF FINDINGS: This is a 48-year-old female who presented to the emergency room with increased cough and congestion, worsening shortness of breath and sinus congestion. Had a breakout of shingles on her abdomen that was hurting and very painful recently. Has bilateral upper and lower extremity weakness, but that is most likely related to her MS, but has been worsening due to her current illness so she was admitted, placed on antibiotics, DuoNebs and dehydration. We did physical therapy and occupational therapy consultations and we did steroids to taper and those were discontinued yesterday and is now felt that she can safely be discharged to rehab today. DISCHARGE MEDICATIONS: 1. Zovirax 250 mg p.o. 5 times daily. 2. Enablex 15 mg p.o. daily. 3. Doxycycline 100 mg p.o. b.i.d. 4. Hydrocodone/ibuprofen 7.5/200, 1 p.o. t.i.d. p.r.n. 5. Levaquin 500 mg p.o. daily. 6. Zofran 8 mg p.o. q.8 hours p.r.n. 7. Lyrica 75 mg p.o. daily. 8. Effexor 75 mg p.o. daily. 9. Xanax 0.25 mg p.o. b.i.d. p.r.n. 10. Baclofen 20 mg p.o. 4 times daily. 11. Celexa 40 mg p.o. daily. 12. Adderall 10 mg p.o. b.i.d. 13. Meclizine 25 mg p.o. q.8 hours p.r.n. FOLLOWUP: She will need to follow up with a primary care physician and establish with one once she has completed her rehab stay. All discharge instructions have been reviewed with the patient and she verbalized understanding. TIME SPENT: This is a 35 minute discharge for Noa Vance. Dictated by ERIC Vazquez for Roland Sanchez MD cc: ERIC Vazquez MD
[2019-03-12] MEDS: VICOPROFEN 200/7.5 MG PO PRN (12:58)
--- NOTE | 2019-03-13 19:36 | DISCHARGE SUMMARY ---
ADMISSION DATE: 03/07/2019 DISCHARGE DATE: 03/12/2019 Patient was seen and examined this morning. She is awake, alert. She is in no distress. She is feeling a lot better. On physical exam, she is afebrile. Vital signs are stable. She is pleasant. She is lying in the bed. She is still very weak and fatigued and having difficulty getting out of bed on her own. PLAN: We are going to transfer her to rehabilitation when bed is available. We will continue antiviral for her shingles. At this point, we will stop the steroids. cc: Roland Sanchez MD
== END 2019-03-12 14:10 | DRG 195 ==
LOC: P.ED 16:08 → P.MEDSURG 19:36
PROVIDERS: ATTEND Family Medicine